=== PATIENT | male | born 1995 | race Asian ===

== ENCOUNTER 2016-08-09 14:59 | Emergency (ER) | payer OTHER ==
[~2016-08-09] VITALS: Ht 172.7 cm; Wt 75.0 kg
[2016-08-09 15:22] VITALS: BP 136/71
== END 2016-08-09 15:57 | disposition home or self-care (01) ==
LOC: EMS 15:01
DX: Z48.02 Encounter for removal of sutures (principal)
CPT/HCPCS: 99281

== ENCOUNTER 2016-09-13 18:08 | Emergency (ER) | payer OTHER ==
[~2016-09-13] VITALS: Ht 172.7 cm; Wt 75.0 kg
[2016-09-13 19:30] VITALS: BP 108/65
== END 2016-09-13 19:46 | disposition home or self-care (01) ==
LOC: EMS 18:10
DX: R68.84 Jaw pain (principal); R03.0 Elevated blood-pressure reading, without diagnosis of hypertension
CPT/HCPCS: 99282

== ENCOUNTER 2017-07-14 23:39 | Emergency (ER) | payer OTHER ==
[~2017-07-14] VITALS: Ht 172.7 cm; Wt 81.8 kg
[2017-07-15 01:54] LABS: BASOPHILS % (AUTO) 0.8 % (0.0-2.0); EOSINOPHILS % (AUTO) 5.1 % (1.0-6.0); HEMATOCRIT 46.3 % (41-53); HEMOGLOBIN 15.9 g/dL (13.5-17.5); LYMPHOCYTES # (AUTO) 1.8 K/uL (1.0-4.8); MEAN CORPUSCULAR HEMOGLOBIN 30.8 pg (26.0-34.0); MEAN CORPUSCULAR HGB CONC 34.3 G/dL (31.0-37.0); MEAN CORPUSCULAR VOLUME 90 fL (80-100); MONOCYTES # (AUTO) 0.5 K/uL (0.1-1.0); MONOCYTES % (AUTO) 8.9 % (2.0-9.0); NEUTROPHILS # (AUTO) 2.7 K/uL (1.8-7.7); NEUTROPHILS % (AUTO) 51.2 % (40.0-70.0); PLATELET COUNT (AUTO) 244 K/uL (150-450); RED BLOOD CELL COUNT(AUTO) 5.14 MIL/uL (4.50-5.90); RED CELL DISTRIBUTION WIDTH 12.4 % (11.5-14.5)
[2017-07-15 03:03] LABS: ANION GAP 8 mmol/L (8-16); CALCIUM, TOTAL 9.1 mg/dL (8.8-10.5); CARBON DIOXIDE 31 mmol/L (22-29); CHLORIDE 101 mmol/L (98-107); GLOMERULAR FILTR. RATE CALC > 60 mL/min (>60); GLUCOSE,RANDOM 112 mg/dL (70-110); POTASSIUM 4.1 mmol/L (3.5-5.1); SODIUM SERUM 140 mmol/L (136-145); UREA NITROGEN, BLOOD 10 mg/dL (7-18)
[2017-07-15 03:10] LABS: ALANINE AMINOTRANSFERASE 34 U/L (12-78); ALBUMIN 4.3 g/dL (3.4-5.0); ALKALINE PHOSPHATASE 121 U/L (46-116); ASPARTATE AMINOTRANSFERASE 26 U/L (15-37); BILIRUBIN,TOTAL 0.4 mg/dL (0.1-1.0); TOTAL PROTEIN, SERUM 7.9 g/dL (6.4-8.2)
[2017-07-15 03:59] VITALS: BP 127/81
== END 2017-07-15 04:04 | disposition home or self-care (01) ==
LOC: EMS 23:40
DX: G62.9 Polyneuropathy, unspecified (principal)
CPT/HCPCS: 93005; 99285